=== PATIENT | female | born 1970 | race Two or more races ===

== ENCOUNTER → 2017-07-05 | Emergency (ER) | payer OTHER ==
[~2017-07-05] VITALS: Ht 154.9 cm; Wt 64.9 kg
[~2017-07-05] MED LIST: CLARINEX5 MG/TAB PO; DIOVAN HCT 80/11 TA1; MOBIC15 MG; PEPCID20 MG PO; PREDNISONE10 MG PO; SYNTHROID50 MCG; ZANAFLEX2 M1; ZETIA10 MG; ZOFRAN8 MG PO
== END | disposition home or self-care (01) ==
LOC: ER 16:58
DX: R51 Headache (principal); N94.6 Dysmenorrhea, unspecified

== ENCOUNTER → 2025-05-23 | Emergency (ER) | payer OTHER ==
[~2025-05-23] VITALS: Ht 154.9 cm; Wt 67.6 kg
[~2025-05-23] MED LIST changes: +0.9 % SODIUM CHLORIDE 1,000 ML IV STA; +AVAPRO150 MG PO; +BACTRIM DS TAB1 EACH PO; +FAMOTIDINE/PF 20 MG/2 ML VIAL IV STA; +FAMOTIDINE/PF 20 MG/2 ML VIAL ONE; +HYDROCHLOROTH12.5 MG; +METFORMIN HCL500 M3 PO; +ONDANSETRON HCL 2 MG/ML VIAL IV STA; +ONDANSETRON HCL 2 MG/ML VIAL ONE; +PEPCID AC20 MG PO
[2025-05-23 04:22] LABS: BASO % 0.2 % (0.1-1.2); EOS # 0.05 (0.04-0.54); EOS % 0.6 % (0.7-7.0); LYMPH # 1.72 (1.18-3.74); LYMPH % 20.0 % (19.3-53.1); MEAN PLATELET VOLUME 10.90 fl (9.4-12.4); MONO # 0.39 (0.24-0.82); MONO % 4.5 % (4.7-12.5); NEUT # 6.43 (1.56-6.13); NEUT % 74.6 % (34.0-71.1); RED CELL DISTRIBUTION WIDTH 12.5 % (11.6-14.4)
[2025-05-23 04:40] LABS: INR 1.02
[2025-05-23 04:45] LABS: ALT/SGPT 61 U/L (12-78); AST/SGOT 39 U/L (15-37); BILIRUBIN TOTAL 0.59 mg/dL (0.3-1.2); BUN CREA RATIO 18 (7.0-25.0); CREATININE SERUM 0.80 mg/dL (0.55-1.02); GFR 73.93; GLOBULINA 3.3 G/DL (2.4-3.5); GLUCOSE FASTING 126 mg/dL (65-100); OSMOLALITY SERUM 280 MOSM/KG (275-295)
[2025-05-23 04:46] LABS: ERYTHROCYTE SEDIMENTATION RATE 10 mm/hr (0-30)
[2025-05-23 04:59] LABS: URINE APPEARANCE Clear; URINE BILIRRUBIN Negative (NEGATIVE); URINE BLOOD Small; URINE COLOR Yellow; URINE GLUCOSE Negative (NEGATIVE); URINE KETONE Negative (NEGATIVE); URINE LEUKOCYTE Trace; URINE NITRATE Negative; URINE PROTEIN Negative (NEGATIVE); URINE UROBILINOGEN 0.2 E.U./dl
[2025-05-23 05:01] LABS: URINE BACTERIA 59.4 uL (0.0-1933); URINE EPITHELIAL CELLS 6.5 uL (0.0-38.8); URINE RBC 7.0 uL (0.0-20.8); URINE WBC 6.5 uL (0.0-23.2)
[2025-05-23 05:02] LABS: URINE CAST 0.14 uL (0.0-1.40)
[2025-05-23 05:03] LABS: COVID-19 AG NEGATIVE (NEGATIVE)
== END | disposition home or self-care (01) ==
LOC: ER 01:11
PROVIDERS: Physician Assistant Medical
DX: K52.89 Other specified noninfective gastroenteritis and colitis (principal); N39.0 Urinary tract infection, site not specified; D25.1 Intramural leiomyoma of uterus; N20.0 Calculus of kidney; I10 Essential (primary) hypertension; Z20.822 Contact with and (suspected) exposure to COVID-19; E11.9 Type 2 diabetes mellitus without complications; Z79.84 Long term (current) use of oral hypoglycemic drugs; Z88.8 Allergy status to other drugs, medicaments and biological substances